=== PATIENT | female | born 1960 | race Caucasian/White ===

== ENCOUNTER 2016-11-10 11:32 | Day surgery (SDC) | payer OTHER ==
[2016-11-06 12:29] VITALS: BMI 23.6
[2016-11-10] MEDS ORDERED: BUPIVACAINE HCL/PF 0.5% (5MG/ML) 10 ML VIAL ONE (11:35)
[2016-11-10] MEDS ORDERED: LIDOCAINE HCL 2% (20ML MULTI-DOSE VIAL) NR ONE (11:35)
[2016-11-10] MEDS ORDERED: MIDAZOLAM HCL 2 MG/2 ML SINGLE DOSE VIAL ONE (13:05)
[2016-11-10] MEDS ORDERED: DEXAMETHASONE SOD PHOSPHATE 4 MG/1 ML VIAL ONE (13:19)
[2016-11-10] MEDS ORDERED: ONDANSETRON 4 MG/2 ML VIAL ONE (13:19)
[2016-11-10] MEDS ORDERED: ceFAZolin SODIUM 1 GM VIAL ONE (13:20)
[2016-11-10] MEDS ORDERED: KETOROLAC TROMETHAMINE 30 MG/1 ML VIAL ONE (13:38)
[2016-11-10 17:02] VITALS: BP 110/79; PULSE 81; TEMP 98
--- NOTE | 2016-11-13 12:27 | OP ---
DATE OF OPERATION: 11/10/2016 SURGEON: Kaushik Terry DPM PREOPERATIVE DIAGNOSIS: Castelan neuroma, right foot. POSTOPERATIVE DIAGNOSIS: Castelan neuroma, right foot. ANESTHESIA: Local anesthesia with intravenous sedation. ANESTHESIOLOGIST: Matthew Rankin MD PROCEDURE: Excision of Castelan neuroma, right foot. OPERATION: After noting all vital signs to be stable, the patient was placed on the operating room table in the supine position. An ankle tourniquet was applied to the right ankle. Intravenous sedation was administered to the patient. Local anesthesia was then administered to the patient using 8 mL of 2% lidocaine and 0.5% Marcaine mixed. The right foot was prepped and draped in the usual sterile fashion. The right foot was elevated and exsanguinated, and the ankle tourniquet was inflated to 250 mmHg. Attention was directed to the right foot, where a 4-cm linear incision was created longitudinally between the 3rd and 4th metatarsophalangeal joints at the dorsal aspect of the right foot. The incision was extended into the digital interspace. The incision was deepened through skin and subcutaneous tissue. Vessels and nerves were identified and retracted. No ligation of vessels was needed. Deeper dissection was carried out, identifying the interosseous transverse ligament. The ligament was transected, exposing a large neuroma lesion. The neuroma lesion was dissected distally, and a branch of the lesion was noted extending into the 3rd digit. This branch was transected. Further dissection revealed a branch of the lesion extending into the 4th digit which was then resected as well. The mass was then dissected proximally. Dexamethasone 4 mg was injected into the proximal aspect of the nerve prior to the formation of the neuroma. The neuroma was then grasped and pulled forward to resect the nerve as proximal as possible. The proximal extension of the nerve leading into the neuroma was resected and allowed to retract back into the soft tissue structures. The site was flushed with copious amounts of sterile saline. The subcutaneous and deep tissue was then reapposed with 4-0 Vicryl. The skin was then reapposed in a subcuticular fashion with 4-0 Prolene. Postoperative anesthesia was administered to the right foot using 0.5% Marcaine. The right foot was dressed in the usual sterile fashion with Betadine-soaked Adaptic, gauze, Krissy, and an Trey bandage. The patient tolerated the procedure well with no complications and was transferred to the recovery room with vital signs stable. VEDA MALIK/[id number]
--- NOTE | 2016-11-14 12:14 | PATH ---
Surgical Pathology Report Patient Name: RADHA BRENNER [facility]. Rec. #: [id number] /Age/Gender: 1960 (Age: 56) / F Account: [id number] Location: [facility] Taken: 11/10/2016 Received: 11/10/2016 Reported: 11/14/2016 Physicians: Kaushik Terry Specimen(s) Received CASTELAN'S NEUROMA RIGHT FOOT Clinical History Mortons neuroma right foot Final Diagnosis SOFT TISSUE, RIGHT FOOT, EXCISION: PERIPHERAL NERVE WITH DISTORTED ARCHITECTURE CONSISTENT WITH NEUROMA. Electronically Signed Venkatesh Rock M.D. Gross Description Received in formalin, labeled "Castelan's neuroma right foot," is a 2.3 x 0.8 x 0.2 cm kelley, irregular portion of soft tissue. The specimen is submitted in toto in one cassette. /11/13/201611/13/2016
== END 2016-11-10 15:30 | disposition home or self-care (01) ==
LOC: FASU 11:32
PROVIDERS: ATTEND Podiatrist Foot & Ankle Surgery
PROC: 01BG0ZZ Excision of Tibial Nerve, Open Approach (ICD-10-PCS; principal; 2016-11-10 13:00)
DX: G57.61 Lesion of plantar nerve, right lower limb (principal)
CPT/HCPCS: 88304-TC